=== PATIENT | female | born 1980 | race Caucasian/White ===

== ENCOUNTER 2021-12-21 11:13 | Inpatient (IN) | payer OTHER ==
[~2021-12-21] VITALS: Ht 157.5 cm; Wt 64.4 kg
--- NOTE | 2021-12-21 11:35 | NUR ---
URINE COLLECTED AND SENT TO LAB
[2021-12-21] MEDS ORDERED: ONDANSETRON HCL/PF 4 MG/2 ML VIAL ONE ×2 (11:50→19:19)
--- NOTE | 2021-12-21 11:50 | NUR ---
IV LINE ESTABLISHED. BLOOD COLLECTED AND SENT TO LAB.
--- NOTE | 2021-12-21 11:56 | NUR ---
DUPLICATE ORDER FOR ZOFRAN
[2021-12-21] MEDS ORDERED: PANTOPRAZOLE 80 MG in IV NS 0.9% 500 ML IV ONE (12:00)
[2021-12-21] MEDS ORDERED: ONDANSETRON HCL/PF - ER 4 MG/2 ML VIAL IV ONE ×2 (12:00)
[2021-12-21] MEDS ORDERED: PANTOPRAZOLE 40 MG VIAL IV ONE (12:30)
[2021-12-21] MEDS ORDERED: OCTREOTIDE 500 MCG in IV NS 0.9% 99 ML IV PRN (12:30)
[2021-12-21] MEDS ORDERED: IV NS 0.9% 1,000 ML BAG IV ONE (12:30)
[2021-12-21] MEDS ORDERED: LORAZEPAM INJ 2 MG/ML VIAL ONE (12:30)
[2021-12-21] MEDS ORDERED: LORAZEPAM INJ 2 MG/ML VIAL IV ONE (12:30)
[2021-12-21] MEDS ORDERED: PANTOPRAZOLE 40 MG VIAL ONE (12:30)
[2021-12-21 12:46] LABS: BASOPHILS % (AUTO) 0.5 % (0.0-2.0); HEMATOCRIT 42 % (33-45); HEMOGLOBIN 14.3 g/dL (11.5-14.8); LYMPHOCYTES # (AUTO) 0.4 K/uL (0.8-4.8); MEAN CORPUSCULAR HGB CONC 34 g/dl (31.0-36.0); MEAN CORPUSCULAR VOLUME 99 fL (82-100); MONOCYTES # (AUTO) 0.3 K/uL (0.1-1.30); MONOCYTES % (AUTO) 3.6 % (2.0-12.0); NEUTROPHILS # (AUTO) 7.3 K/uL (1.8-8.9); NEUTROPHILS % (AUTO) 90.9 % (43.0-81.0); RED BLOOD CELL COUNT(AUTO) 4.26 MIL/uL (4.0-5.2); WHITE BLOOD COUNT (AUTO) 8.1 K/uL (4.3-11.0)
[2021-12-21 13:45] LABS: PLATELET COUNT (AUTO) 94 K/uL (150-450)
[2021-12-21 13:49] LABS: CALCIUM, SERUM 9.2 mg/dL (8.5-10.1); CARBON DIOXIDE 23 mmol/L (21-32); CHLORIDE 94 mmol/L (98-107); CREATININE 0.7 mg/dL (0.6-1.3); GLUCOSE 133 mg/dL (74-106); SODIUM SERUM 136 mmol/L (136-145); UREA NITROGEN, BLOOD 11 mg/dL (7-18)
[2021-12-21 13:55] LABS: ALANINE AMINOTRANSFERASE 77 U/L (12-78); ALBUMIN 4.4 g/dL (3.4-5.0); ALKALINE PHOSPHATASE 167 U/L (46-116); ASPARTATE AMINOTRANSFERASE 123 U/L (15-37); BILIRUBIN,DIRECT 0.5 mg/dL (0.0-0.2); BILIRUBIN,TOTAL 1.2 mg/dL (0.2-1.0); LIPASE 297 U/L (73-393); TOTAL PROTEIN, SERUM 8.9 g/dL (6.4-8.2)
--- NOTE | 2021-12-21 14:42 | NUR ---
MOVE SHEET SUBMITTED.
--- NOTE | 2021-12-21 14:43 | NUR ---
COVID ANTIGEN SWAB COLLECTED AND SENT TO LAB
--- NOTE | 2021-12-21 14:54 | NUR ---
URINE SAMPLE COLLECTED AND SENT TO LAB
[2021-12-21] MEDS ORDERED: QUET200T PO (15:01)
[2021-12-21] MEDS ORDERED: QUET25TA PO (15:01)
[2021-12-21 15:33] LABS: BILIRUBIN,URINE NEGATIVE (NEGATIVE); COLOR,URINE YELLOW (YELLOW); LEUKOCYTE ESTERASE ,URINE NEGATIVE (NEGATIVE); NITRITE, URINE NEGATIVE (NEGATIVE); PROTEIN,URINE 100 mg/dl (NEGATIVE); UGLUCOSE NEGATIVE (NEGATIVE); UROBILINOGEN,URINE 0.2 EU/dL (0.2)
--- NOTE | 2021-12-21 15:41 | NUR ---
[facility] CALLED MOLD BUNCH TRIMMER PAGED.
[2021-12-21 15:50] LABS: BACTERIA,URINE Few /HPF (None Seen); SQUAMOUS EPITHELIAL CELL,UR Moderate /HPF (None Seen)
--- NOTE | 2021-12-21 15:55 | NUR ---
PT TAKEN FOR CT SCAN
[2021-12-21] MEDS ORDERED: IOHEXOL-300 100 ML VIAL IV ONE (16:07)
[2021-12-21] MEDS ORDERED: IV NS 0.9% 250 ML IV ONE (16:07)
[2021-12-21] MEDS ORDERED: diphenhydrAMINE HCL 50 MG/ML VIAL ONE (16:28)
[2021-12-21] MEDS ORDERED: Z GUARD REMEDY 4 OZ OINT TP PRN (16:30)
[2021-12-21] MEDS ORDERED: LORAZEPAM INJ 2 MG/ML VIAL IV PRN (16:30)
[2021-12-21] MEDS ORDERED: ONDANSETRON HCL/PF 4 MG/2 ML VIAL IVP PRN (16:30)
[2021-12-21] MEDS ORDERED: diphenhydrAMINE HCL 50 MG/ML VIAL IV ONE (16:30)
[2021-12-21] MEDS ORDERED: ACETAMINOPHEN 325 MG TABLET PO PRN (16:30)
[2021-12-21] MEDS ORDERED: MORPHINE SULFATE INJ 2 MG/ML DISP.SYRIN IV PRN (16:30)
--- NOTE | 2021-12-21 16:30 | NUR ---
PT RETURNED FROM CAT SCAN, PT C/O ITCHING POST CT WITH CONTRAST. MEDICATED ORDERED.
--- NOTE | 2021-12-21 18:58 | NUR ---
FECAL OCCULT OBTAINED AND SENT TO LAB
--- NOTE | 2021-12-21 19:00 | NUR ---
PT AMBULATED TO BATHROOM WITH STEADY GAIT, RECONNECTED TO MONITOR. WILL ENDORSE TO LASHAE KEYES.
--- NOTE | 2021-12-21 20:07 | NUR ---
BOILERMAKER AT PT'S BEDSIDE
[2021-12-21] MEDS ORDERED: POTASSIUM CL. PREMIX PERIPHER. 100 ML ONE (20:13)
[2021-12-21 20:24] LABS: OCCULT BLOOD STOOL NEGATIVE (NEGATIVE)
[2021-12-21] MEDS: POTASSIUM CL. PREMIX PERIPHER. 50 ML IV SCH ×4 (20:30→23:10)
[2021-12-21] MEDS: Folic acid 1 MG in IV D5W 50 ML IV SCH (21:30)
[2021-12-21] MEDS: Thiamine 100 MG in IV D5W 50 ML IV SCH (21:30)
--- NOTE | 2021-12-21 22:06 | NUR ---
ROOM 324-1
--- NOTE | 2021-12-21 22:22 | NUR ---
REPORT GIVEN TO STEPHY MILLER FOR ARTI
[2021-12-21 22:38] VITALS: BP 155/91
--- NOTE | 2021-12-21 22:45 | NUR ---
RN NOTES RECEIVED PATIENT FORM ER WITH DX, GI BLEED, HEMATEMESIS, A/OX3, SR ON TELE MONITOR HR-82, DENIES PAIN, NO N/V, NO SOB, ADMISSION INSTRUCTION WAS GIVEN, CALL LIGHT WITHIN REACH, [id number], WILL CONTINUE TO MONITOR
--- NOTE | 2021-12-21 23:01 | NUR ---
pt transported [place] with emt and rn at bedside with acls protocol. nad noted. pt ambulated from gurney to bed on steady gait.
[2021-12-22] VITALS: BP 123/82
[2021-12-22] MEDS ORDERED: OCTREOTIDE 500 MCG/ML VIAL ONE (00:50)
[2021-12-22] MEDS: IV LR 1000 ML 1,000 ML IV PRN ×3 (00:55→22:52)
[2021-12-22 04:00] VITALS: BP 135/72
--- NOTE | 2021-12-22 06:22 | NUR ---
RN NOTES AWAKE, DENIES PAIN, NO SON, NO N/V, MORNING CARE RENDERED, CALL LIGHT WITHIN REACH, [id number], PT. NEEDS ATTENDED
[2021-12-22 07:00] LABS: BASOPHILS % (AUTO) 0.6 % (0.0-2.0); EOSINOPHILS % (AUTO) 1.1 % (0.0-6.0); HEMATOCRIT 37 % (33-45); HEMOGLOBIN 12.8 g/dL (11.5-14.8); LYMPHOCYTES # (AUTO) 1.3 K/uL (0.8-4.8); LYMPHOCYTES % (AUTO) 21.1 % (20.0-44.0); MEAN CORPUSCULAR HGB CONC 35 g/dl (31.0-36.0); MEAN CORPUSCULAR VOLUME 100 fL (82-100); MONOCYTES # (AUTO) 0.5 K/uL (0.1-1.30); MONOCYTES % (AUTO) 7.6 % (2.0-12.0); NEUTROPHILS # (AUTO) 4.2 K/uL (1.8-8.9); NEUTROPHILS % (AUTO) 69.6 % (43.0-81.0); PLATELET COUNT (AUTO) 59 K/uL (150-450); RED BLOOD CELL COUNT(AUTO) 3.67 MIL/uL (4.0-5.2)
--- NOTE | 2021-12-22 07:30 | NUR ---
BILL COLLECTOR NOTES RECEIVED PATIENT AWAKE IN BED. A/OX3, SR ON TELE MONITOR .DENIES PAIN, NO N/V, NO SOB NO RESPIRATORY DISTRESS NOTED. ABLE TO MAKE NEEDS KNOWN. IV ACCESS ON THE RAC #20 INTACT. IV ACCESS ON THE RIGHT HAND INTACT.NO BLEEDING NOTED AND REPORTED. CALL LIGHT WITHIN REACH, SIDE RAILS UPX2, BED IN THE LOWEST POSITION AND LOCKED.WILL CONTINUE TO MONITOR.
[2021-12-22 07:32] LABS: ALBUMIN 3.6 g/dL (3.4-5.0); BILIRUBIN,TOTAL 2.2 mg/dL (0.2-1.0); CALCIUM, SERUM 8.6 mg/dL (8.5-10.1); CREATININE 0.6 mg/dL (0.6-1.3); MAGNESIUM 1.8 mg/dL (1.8-2.4); PHOSPHORUS 2.4 mg/dL (2.5-4.9); POTASSIUM 3.9 mmol/L (3.5-5.1); TOTAL PROTEIN, SERUM 7.2 g/dL (6.4-8.2)
[2021-12-22 08:00] VITALS: BP 131/92
[2021-12-22] MEDS: OCTREOTIDE 500 MCG in IV NS 0.9% 99 ML IV PRN ×2 (11:43→11:48)
[2021-12-22 16:00] VITALS: BP 126/95
[2021-12-22] MEDS ORDERED: K PHOS NEUTRAL 250 MG TABLET PO ONE (16:00)
--- NOTE | 2021-12-22 19:25 | NUR ---
MS RN CLOSING NOTES PATIENT AWAKE IN BED. A/OX3 .DENIES PAIN, NO N/V, NO HEMATHEMESIS , NO BLEEDING NOTED.NO SOB NO RESPIRATORY DISTRESS NOTED. ABLE TO MAKE NEEDS KNOWN. IV ACCESS ON THE RAC #20 INTACT. IV ACCESS ON THE RIGHT HAND INTACT. SANDOSTATIN AT 10 ML/HR AND LR AT 125ML/HR RUNNING.ALL DUE MEDS GIVEN ORDERED.CALL LIGHT AND TABLE WITHIN REACH, SIDE RAILS UPX2, BED IN THE LOWEST POSITION AND LOCKED.WILL ENDORSE FOR ARTI.
--- NOTE | 2021-12-22 19:30 | NUR ---
RN NOTES RECEIVED PATIENT AWAKE ON HER BED, A/OX3 AMBULATORY DENIES PAIN, NO SOB, CALL LIGHT WITHIN REACH, SIDERAILSUPX2, WILL CONTINUE TO MONITOR
[2021-12-22 20:00] VITALS: BP 131/93
[2021-12-22] MEDS: Folic acid 1 MG in IV D5W 50 ML IV SCH (21:09)
[2021-12-22] MEDS: Thiamine 100 MG in IV D5W 50 ML IV SCH (21:58)
[2021-12-23] MEDS: OCTREOTIDE 500 MCG in IV NS 0.9% 99 ML IV PRN (01:34)
--- NOTE | 2021-12-23 06:30 | NUR ---
RN NOTES NOTICED PATIENT IV ACCESS IS SLIGHTLY SWOLLEN, PATIENT REFUSED TO HAVE ANOTHER IV ACCESS, EXPLAINED THE IMPORTANCE OF GETTING ANEW ACCES BUT PATIENT STILL REFUSING. ALSO EXPLAINED TO THE PATIENT SHE'S GOING TO HAVE AN EGD TODAY PER DR CAPONE'S ORDER, PATIENT WANTS TO SPEAK WITH THE DOCTOR FIRST BEFOSR SIGNING THE CONSENT PATIENT DENIES PAIN, NO SOB, MORNING CARE RENDERED, CALL LIGHT WITHIN REACH, SIDERAILSUPX2, PT. NEEDS ATTENDED
--- NOTE | 2021-12-23 07:30 | NUR ---
MS RN OPENING NOTES PATIENT AWAKE IN BED. A/OX3 .DENIES PAIN, NO N/V, NO HEMATEMESIS , NO BLEEDING NOTED.NO SOB NO RESPIRATORY DISTRESS NOTED. ABLE TO MAKE NEEDS KNOWN. IV ACCESS ON THE RAC #20 INTACT. IV ACCESS ON THE LEFT HAND INTACT. SANDOSTATIN AT 2 ML/HR AND LR AT 125ML/HR RUNNING. PATIENT NPO EXCEPT MEDS.CALL LIGHT AND TABLE WITHIN REACH, SIDE RAILS UPX2, BED IN THE LOWEST POSITION AND LOCKED.WILL CONTINUE TO MONITOR.
[2021-12-23 07:36] LABS: ALANINE AMINOTRANSFERASE 70 U/L (12-78); ALBUMIN 3.3 g/dL (3.4-5.0); ALCOHOL, BLOOD < 3 mg/dL (0-0); ALKALINE PHOSPHATASE 124 U/L (46-116); ASPARTATE AMINOTRANSFERASE 123 U/L (15-37); BILIRUBIN,TOTAL 1.7 mg/dL (0.2-1.0); CALCIUM, SERUM 8.9 mg/dL (8.5-10.1); CARBON DIOXIDE 25 mmol/L (21-32); CHLORIDE 96 mmol/L (98-107); CREATININE 0.6 mg/dL (0.6-1.3); GLUCOSE 97 mg/dL (74-106); MAGNESIUM 1.7 mg/dL (1.8-2.4); PHOSPHORUS 3.4 mg/dL (2.5-4.9); POTASSIUM 3.4 mmol/L (3.5-5.1); SODIUM SERUM 134 mmol/L (136-145); TOTAL PROTEIN, SERUM 7.2 g/dL (6.4-8.2); UREA NITROGEN, BLOOD 7 mg/dL (7-18)
[2021-12-23 07:54] LABS: BASOPHILS % (AUTO) 0.4 % (0.0-2.0); EOSINOPHILS % (AUTO) 5.3 % (0.0-6.0); HEMATOCRIT 37 % (33-45); HEMOGLOBIN 12.9 g/dL (11.5-14.8); LYMPHOCYTES # (AUTO) 1.5 K/uL (0.8-4.8); LYMPHOCYTES % (AUTO) 21.4 % (20.0-44.0); MEAN CORPUSCULAR HGB CONC 35 g/dl (31.0-36.0); MEAN CORPUSCULAR VOLUME 103 fL (82-100); MONOCYTES # (AUTO) 0.4 K/uL (0.1-1.30); NEUTROPHILS # (AUTO) 4.6 K/uL (1.8-8.9); NEUTROPHILS % (AUTO) 66.9 % (43.0-81.0); PLATELET COUNT (AUTO) 57 K/uL (150-450); RED BLOOD CELL COUNT(AUTO) 3.59 MIL/uL (4.0-5.2); WHITE BLOOD COUNT (AUTO) 6.8 K/uL (4.3-11.0)
[2021-12-23 07:58] VITALS: BP 140/80
[2021-12-23] MEDS: IV LR 1000 ML 1,000 ML IV PRN (09:39)
[2021-12-23] MEDS ORDERED: POTASSIUM CHLORIDE 20 MEQ TAB.PRT.SR PO SCH (10:00)
[2021-12-23] MEDS ORDERED: MAGNESIUM OXIDE 400 MG TABLET PO ONE (11:00)
[2021-12-23] MEDS ORDERED: OMEP20TA20 PO (13:33)
--- NOTE | 2021-12-23 15:37 | NUR ---
JAVA TECHNICAL ARCHITECT NOTES DISCHARGE PATIENT IN STABLE CONDITION. NO PAIN NOTED. NO RESPIRATORY DISTRESS NOTED. NO BLEEDING NOTED. NO NAUSEA AND VOMITING NOTED. VITAL SIGNS WITHIN NORMAL RANGES. PATIENT THE RECIEVER OF THE INSTRUCTIONS VERBALIZED UNDERSTANDING. 2 IV ACCESS REMOVED AND COVERED WITH GAUZE. NO BLEEDING NOTED. BELONGINGS ACCOUNTED AND SIGNED FOR. ARM BAND REMOVED. NOTED A DISCOLORATION ON THE RIGHT SHOULDER, PICTURE TAKEN IN THE CHART. PATIENT NOT AWARE WHAT HAPPENED. WALKED WITH THE PATIENT TO THE [place] AT 1530 PM, SHE WILL WAIT FOR SISTER TO COME IN THE [place]. CHARGE NURSE CARLOS MANUEL AND MD ROSIE VILLASEÑOR AWARE OF THE DISCHARGE.
[2021-12-23] MEDS ORDERED: THIAMINE HCL 100 MG TABLET PO SCH (21:00)
[2021-12-23] MEDS ORDERED: FOLIC ACID 1 MG TABLET PO SCH (21:00)
== END 2021-12-23 15:52 | disposition home or self-care (01) | DRG 242 ==
LOC: ER 11:20 → TRANSITION 18:31 → MED 22:10 → TELE 12-22 00:25 → MED 12-22 15:44
PROVIDERS: ADMIT Hospitalist; ATTEND Hospitalist
DX: K22.6 Gastro-esophageal laceration-hemorrhage syndrome (principal); K85.20 Alcohol induced acute pancreatitis without necrosis or infection; E87.2 Acidosis; D62 Acute posthemorrhagic anemia; K70.10 Alcoholic hepatitis without ascites; E87.6 Hypokalemia; Z20.822 Contact with and (suspected) exposure to COVID-19; K52.9 Noninfective gastroenteritis and colitis, unspecified; F10.129 Alcohol abuse with intoxication, unspecified; I10 Essential (primary) hypertension; Z88.6 Allergy status to analgesic agent; Y90.6 Blood alcohol level of 120-199 mg/100 ml; Z79.899 Other long term (current) drug therapy; K21.00 Gastro-esophageal reflux disease with esophagitis, without bleeding; K57.30 Diverticulosis of large intestine without perforation or abscess without bleeding; K76.0 Fatty (change of) liver, not elsewhere classified; N85.4 Malposition of uterus
CPT/HCPCS: 36415; 71045-TC; 80048-TC; 80053-TC; 80076-TC; 81001; 82272-TC; 83605-TC; 83690-TC; 83735-TC; 84100-TC; 84484-TC; 84703-TC; 85025-TC; 85730-TC; 86850-TC; 87081-TC; C9113; C9803; G0378; G0480; J1200; J2060; J2354; J2405; J3411; J3480; J3490; J7030; J7040; J7050; J7060; J7120; Q9967

== ENCOUNTER 2022-02-08 06:08 | Emergency (ER) | payer OTHER ==
[~2022-02-08] VITALS: Ht 157.5 cm; Wt 61.2 kg
[~2022-02-08 06:08] MED LIST: OMEP20TA20 PO; QUET200T PO; QUET25TA PO
--- NOTE | 2022-02-08 06:20 | NUR ---
BIBS C/O WOUNDS TO BOTTOM OF FOOT AND TOES. PT STATES SHE WAS AT HOME AND BECAME DIZZY AND FELL, AND WOKE UP TO THE LOWER EXTREMITY INJURIES. -HEADTRAUMA AND DENIES ANY OTHER COMPLAINTS. APPRAISER LAND AT BEDSIDE FOR WOUND CARE.
[2022-02-08] MEDS ORDERED: oxyCODONE IR immediate release 5 MG PO PRN (06:30)
[2022-02-08] MEDS ORDERED: ONDANSETRON 4 MG TAB.RAPDIS SL ONE (06:30)
[2022-02-08] MEDS ORDERED: oxyCODONE IR immediate release 5 MG ONE (06:34)
[2022-02-08] MEDS ORDERED: ONDANSETRON 4 MG TAB.RAPDIS ONE (06:35)
[2022-02-08] MEDS ORDERED: LIDOCAINE /MPF 1% VIAL 5 ML VIAL ONE (09:05)
[2022-02-08] MEDS ORDERED: LIDOCAINE 1% INJ 50 ML MDV IJ ONE (09:30)
[2022-02-08] MEDS ORDERED: CEFAZOLIN 1 GM in IV D5W 50 ML IV ONE (10:30)
--- NOTE | 2022-02-08 11:00 | NUR ---
LEFT A VOICEMAIL TO DR. QUINONES (PODIATRY) FOR CONSULT. WAITING FOR RESPONSE.
[2022-02-08 11:16] LABS: BASOPHILS % (AUTO) 0.4 % (0.0-2.0); HEMATOCRIT 42 % (33-45); LYMPHOCYTES % (AUTO) 9.7 % (20.0-44.0); MEAN CORPUSCULAR HGB CONC 34 g/dl (31.0-36.0); MEAN CORPUSCULAR VOLUME 97 fL (82-100); MONOCYTES # (AUTO) 0.4 K/uL (0.1-1.30); MONOCYTES % (AUTO) 4.3 % (2.0-12.0); NEUTROPHILS # (AUTO) 8.8 K/uL (1.8-8.9); NEUTROPHILS % (AUTO) 85.6 % (43.0-81.0); PLATELET COUNT (AUTO) 225 K/uL (150-450); RED BLOOD CELL COUNT(AUTO) 4.29 MIL/uL (4.0-5.2); WHITE BLOOD COUNT (AUTO) 10.3 K/uL (4.3-11.0)
[2022-02-08 11:37] LABS: CALCIUM, SERUM 9.1 mg/dL (8.5-10.1); CARBON DIOXIDE 20 mmol/L (21-32); CHLORIDE 95 mmol/L (98-107); CREATININE 0.6 mg/dL (0.6-1.3); GLUCOSE 109 mg/dL (74-106); POTASSIUM 3.8 mmol/L (3.5-5.1); SODIUM SERUM 134 mmol/L (136-145); UREA NITROGEN, BLOOD 10 mg/dL (7-18)
[2022-02-08 11:39] LABS: LIPASE 104 U/L (73-393)
[2022-02-08] MEDS ORDERED: CEPH500C2 PO (11:55)
[2022-02-08 12:07] LABS: BILIRUBIN,URINE SMALL (NEGATIVE); COLOR,URINE YELLOW (YELLOW); LEUKOCYTE ESTERASE ,URINE NEGATIVE (NEGATIVE); NITRITE, URINE NEGATIVE (NEGATIVE); PROTEIN,URINE NEGATIVE (NEGATIVE); UGLUCOSE NEGATIVE (NEGATIVE); UROBILINOGEN,URINE 0.2 EU/dL (0.2)
[2022-02-08] MEDS ORDERED: IV NS 0.9% 1,000 ML IV ONE (13:00)
[2022-02-08 13:18] LABS: BACTERIA,URINE RARE /HPF (None Seen); CALCIUM CARBONATE CRYSTALS,UR None Seen /HPF (None Seen); CALCIUM OXALATE CRYSTALS,UR None Seen /HPF (None Seen); CALCIUM PHOSPHATE CRYSTALS,UR None Seen /HPF (None Seen); CYSTINE CRYSTALS,URINE None Seen /HPF (None Seen); OTHER CRYSTALS,URINE None Seen /HPF (None Seen); RBC,URINE 0-2 /HPF (0-2); SQUAMOUS EPITHELIAL CELL,UR RARE /HPF (None Seen); TRICHOMONAS,URINE None Seen /HPF (None Seen); TRIPLE PHOSPHATE CRYSTAL,UR None Seen /HPF (None Seen); TYROSINE CRYSTAL,URINE None seen /HPF (None Seen); URIC ACID CRYSTALS,URINE None Seen /HPF (None Seen); URINE AMORPHOUS URATE None Seen /HPF (None Seen); WBC,URINE 0-2 /HPF (0-3); YEAST,URINE None Seen /HPF (None Seen)
[2022-02-08 13:19] LABS: COARSE GRANULAR CASTS,URINE None Seen /LPF (None Seen); FATTY CASTS,URINE None Seen /LPF (None Seen); FINE GRANULAR CASTS,URINE None Seen /LPF (None Seen); HYALINE CASTS, URINE None Seen /LPF (None Seen); MUCUS,URINE None Seen /LPF (None Seen); RED BLOOD CELL CASTS,URINE None Seen /LPF (None Seen); URINE AMORPHOUS PHOSPHATES None Seen /HPF (None Seen); WAXY CASTS,URINE None Seen /LPF (None Seen)
--- NOTE | 2022-02-08 14:10 | NUR ---
IV removed. Catheter intact and site benign. Pressure and 4x4 applied to site. No bleeding noted.Patient discharged to home in stable condition. Written and verbal after care instructions given. Patient verbalizes understanding of instruction.
[2022-02-08 14:12] VITALS: BP 125/88
== END 2022-02-08 14:17 | disposition home or self-care (01) ==
LOC: ER 06:10
DX: S92.511A Displaced fracture of proximal phalanx of right lesser toe(s), initial encounter for closed fracture (principal); R74.02 Elevation of levels of lactic acid dehydrogenase [LDH]; I10 Essential (primary) hypertension; Z88.6 Allergy status to analgesic agent; Z60.2 Problems related to living alone; Z79.899 Other long term (current) drug therapy; X58.XXXA Exposure to other specified factors, initial encounter; Y93.89 Activity, other specified; Y92.89 Other specified places as the place of occurrence of the external cause; Y99.8 Other external cause status
CPT/HCPCS: 28515; 36415; 73630; 73660; 80048; 81001; 83605; 83690; 84703; 85025; 85730; 87040 ×2; 96365; 99284; A6403; J0690; J3490; J7030; J7060; Q0162

== ENCOUNTER 2022-02-28 19:20 | Emergency (ER) | payer OTHER ==
[~2022-02-28] VITALS: Ht 157.5 cm; Wt 61.2 kg
[~2022-02-28 19:20] MED LIST changes: +CEPH500C2 PO
[2022-02-28 19:50] VITALS: BP 172/117
[2022-02-28] MEDS ORDERED: TRAM50TA PO (20:41)
[2022-02-28] MEDS ORDERED: TRAMADOL HCL 50 MG TABLET PO ONE (21:00)
[2022-02-28] MEDS ORDERED: TRAMADOL HCL 50 MG TABLET ONE (21:13)
--- NOTE | 2022-02-28 21:48 | NUR ---
Patient discharged to home in stable condition. Written and verbal after care instructions given. Patient verbalizes understanding of instruction.
== END 2022-02-28 21:50 | disposition home or self-care (01) ==
LOC: ER 19:22
DX: S92.501A Displaced unspecified fracture of right lesser toe(s), initial encounter for closed fracture (principal); I10 Essential (primary) hypertension; Z88.6 Allergy status to analgesic agent; Z60.2 Problems related to living alone; Z79.899 Other long term (current) drug therapy; X58.XXXA Exposure to other specified factors, initial encounter; Y93.89 Activity, other specified; Y92.89 Other specified places as the place of occurrence of the external cause; Y99.8 Other external cause status

== ENCOUNTER 2022-03-14 05:37 | Emergency (ER) | payer OTHER ==
[~2022-03-14] VITALS: Ht 167.6 cm; Wt 61.2 kg
[~2022-03-14 05:37] MED LIST changes: +TRAM50TA PO
[2022-03-14] MEDS ORDERED: LET SOLN TOPICAL 8 ML UDC TP ONE (06:56)
[2022-03-14] MEDS: LET SOLN TOPICAL 8 ML UDC TP ONE (06:57)
[2022-03-14 07:33] VITALS: BP 147/89
== END 2022-03-14 07:33 | disposition home or self-care (01) ==
LOC: ER 05:39
DX: S92.501D Displaced unspecified fracture of right lesser toe(s), subsequent encounter for fracture with routine healing (principal); M79.671 Pain in right foot; F10.129 Alcohol abuse with intoxication, unspecified; X58.XXXD Exposure to other specified factors, subsequent encounter; Y90.9 Presence of alcohol in blood, level not specified

== ENCOUNTER 2022-12-05 14:47 | Emergency (ER) | payer OTHER ==
[~2022-12-05] VITALS: Ht 154.9 cm; Wt 62.6 kg
--- NOTE | 2022-12-05 14:53 | NUR ---
PT AMBULATED TO RESTROOM WITH STEADY GAIT TO GIVE URINE SAMPLE
--- NOTE | 2022-12-05 14:56 | NUR ---
DR. CORRIGAN AT BEDSIDE.
--- NOTE | 2022-12-05 14:57 | NUR ---
URINE SAMPLE COLLECTED AND SENT TO LAB.
[2022-12-05] MEDS ORDERED: ONDANSETRON HCL/PF 4 MG/2 ML VIAL IVP ONE (15:00)
[2022-12-05] MEDS ORDERED: MORPHINE SULFATE INJ 2 MG/ML DISP.SYRIN IV ONE ×2 (15:00→17:30)
[2022-12-05] MEDS ORDERED: IV NS 0.9% 1,000 ML BAG IV ONE (15:00)
[2022-12-05] MEDS ORDERED: ONDANSETRON HCL/PF 4 MG/2 ML VIAL ONE (15:10)
[2022-12-05] MEDS ORDERED: MORPHINE SULFATE INJ 4 MG/ML DISP.SYRIN ONE ×2 (15:10→17:33)
--- NOTE | 2022-12-05 15:16 | NUR ---
ESTABLISHED IV ACCESS. 20G RIGHT FOREARM. BLOOD DRAWN AND SENT TO LAB. IV FLUIDS RUNNING ORDERED.
[2022-12-05 15:32] LABS: BASOPHILS # (AUTO) 0.1 K/uL (0.0-0.2); BASOPHILS % (AUTO) 0.7 % (0.0-2.0); EOSINOPHILS % (AUTO) 4.8 % (0.0-6.0); HEMATOCRIT 44 % (33-45); HEMOGLOBIN 14.7 g/dL (11.5-14.8); LYMPHOCYTES # (AUTO) 2.6 K/uL (0.8-4.8); LYMPHOCYTES % (AUTO) 32.5 % (20.0-44.0); MEAN CORPUSCULAR HGB CONC 33 g/dl (31.0-36.0); MEAN CORPUSCULAR VOLUME 105 fL (82-100); MONOCYTES # (AUTO) 0.9 K/uL (0.1-1.30); MONOCYTES % (AUTO) 11.1 % (2.0-12.0); NEUTROPHILS # (AUTO) 4.1 K/uL (1.8-8.9); NEUTROPHILS % (AUTO) 50.9 % (43.0-81.0); PLATELET COUNT (AUTO) 258 K/uL (150-450); RED BLOOD CELL COUNT(AUTO) 4.24 MIL/uL (4.0-5.2); WHITE BLOOD COUNT (AUTO) 8.1 K/uL (4.3-11.0)
[2022-12-05 15:42] LABS: BILIRUBIN,DIRECT 0.1 mg/dL (0.0-0.2); BILIRUBIN,TOTAL 0.3 mg/dL (0.2-1.0); CALCIUM, SERUM 9.1 mg/dL (8.5-10.1); CREATININE 0.6 mg/dL (0.6-1.3); POTASSIUM 4.4 mmol/L (3.5-5.1); TOTAL PROTEIN, SERUM 8.8 g/dL (6.4-8.2)
[2022-12-05 16:02] LABS: BILIRUBIN,URINE NEGATIVE (NEGATIVE); COLOR,URINE YELLOW (YELLOW); LEUKOCYTE ESTERASE ,URINE NEGATIVE (NEGATIVE); NITRITE, URINE NEGATIVE (NEGATIVE); PH,URINE 5.5 (5.0-8.0); PROTEIN,URINE TRACE mg/dl (NEGATIVE); UGLUCOSE NEGATIVE (NEGATIVE); UROBILINOGEN,URINE 0.2 EU/dL (0.2)
[2022-12-05 16:41] LABS: BACTERIA,URINE None seen /HPF (None Seen); RBC,URINE 0-2 /HPF (0-2); SQUAMOUS EPITHELIAL CELL,UR Few /HPF (None Seen); WBC,URINE NONE SEEN /HPF (0-3)
--- NOTE | 2022-12-05 16:43 | NUR ---
PT APPEARS TO BE SLEEPING, RESTING COMFORTABLY. VSS. BREATHING EVEN AND UNLABORED.
[2022-12-05] MEDS ORDERED: IV NS 0.9% 250 ML IV ONE (16:51)
[2022-12-05] MEDS ORDERED: CT SWABBABLE VALVE TRANS SET 1 EA INFUS.SET MC ONE (16:51)
[2022-12-05] MEDS ORDERED: IOHEXOL-300 100 ML VIAL IV ONE (16:51)
[2022-12-05 17:07] LABS: EOSINOPHILS % (MANUAL) 3 % (0-4); LYMPHOCYTES % (MANUAL) 39 % (16-48); MONOCYTES % (MANUAL) 13 % (0-11.0); NEUTROPHILS % (MANUAL) 41 (42-76); REACTIVE LYMPHOCYTES 4 % (0-0)
[2022-12-05] MEDS ORDERED: DICY20TA11 PO (18:04)
[2022-12-05 18:23] VITALS: BP 134/70
--- NOTE | 2022-12-05 18:23 | NUR ---
Patient discharged to home in stable condition. Written and verbal after care instructions given. Patient verbalizes understanding of instruction.IV removed. Catheter intact and site benign. Pressure and 4x4 applied to site. No bleeding noted.
== END 2022-12-05 18:24 | disposition home or self-care (01) ==
LOC: ER 14:49
DX: R10.9 Unspecified abdominal pain (principal); A05.9 Bacterial foodborne intoxication, unspecified; I10 Essential (primary) hypertension; Z88.8 Allergy status to other drugs, medicaments and biological substances; Z60.2 Problems related to living alone; Z79.899 Other long term (current) drug therapy
CPT/HCPCS: 99285; 74177; 96374; 96361; 96375; 96376; 85025; 80048; 83690; 80076; 84703; 81001; 36415; 85007; J2270 ×2; J2405; J7030; J7050; Q9967

== ENCOUNTER 2023-03-12 11:22 | Emergency (ER) | payer OTHER ==
[~2023-03-12] VITALS: Ht 157.5 cm; Wt 65.8 kg
[~2023-03-12 11:22] MED LIST changes: +DICY20TA11 PO
--- NOTE | 2023-03-12 11:30 | NUR ---
[id number] C/O SUBSTERNAL CP, NON RADIATING WITH NAUSEA AND VOMITING SINCE YESTERDAY MORNING.
--- NOTE | 2023-03-12 11:45 | NUR ---
BLOOD SAMPLES OBTAINED
[2023-03-12] MEDS ORDERED: ONDANSETRON HCL/PF 4 MG/2 ML VIAL ONE (11:46)
[2023-03-12] MEDS ORDERED: MORPHINE SULFATE INJ 2 MG/ML DISP.SYRIN ONE (11:46)
[2023-03-12 11:49] LABS: BASOPHILS % (AUTO) 0.8 % (0.0-2.0); EOSINOPHILS % (AUTO) 0.2 % (0.0-6.0); HEMATOCRIT 41 % (33-45); HEMOGLOBIN 14.2 g/dL (11.5-14.8); LYMPHOCYTES # (AUTO) 0.8 K/uL (0.8-4.8); LYMPHOCYTES % (AUTO) 19.9 % (20.0-44.0); MEAN CORPUSCULAR HGB CONC 35 g/dl (31.0-36.0); MEAN CORPUSCULAR VOLUME 96 fL (82-100); MONOCYTES # (AUTO) 0.2 K/uL (0.1-1.30); NEUTROPHILS % (AUTO) 74.1 % (43.0-81.0); PLATELET COUNT (AUTO) 145 K/uL (150-450); RED BLOOD CELL COUNT(AUTO) 4.28 MIL/uL (4.0-5.2); WHITE BLOOD COUNT (AUTO) 4.1 K/uL (4.3-11.0)
[2023-03-12] MEDS ORDERED: IV NS 0.9% 1,000 ML BAG IV ONE (12:00)
[2023-03-12] MEDS ORDERED: MORPHINE SULFATE INJ 2 MG/ML DISP.SYRIN IV ONE (12:00)
[2023-03-12] MEDS ORDERED: ONDANSETRON HCL/PF 4 MG/2 ML VIAL IVP ONE (12:00)
[2023-03-12 12:27] LABS: CALCIUM, SERUM 8.8 mg/dL (8.5-10.1); CARBON DIOXIDE 23 mmol/L (21-32); CHLORIDE 100 mmol/L (98-107); CREATININE 0.7 mg/dL (0.6-1.3); GLUCOSE 124 mg/dL (74-106); POTASSIUM 3.7 mmol/L (3.5-5.1); SODIUM SERUM 138 mmol/L (136-145); UREA NITROGEN, BLOOD 9 mg/dL (7-18)
[2023-03-12 12:36] LABS: ALANINE AMINOTRANSFERASE 50 U/L (12-78); ALBUMIN 4.1 g/dL (3.4-5.0); ASPARTATE AMINOTRANSFERASE 51 U/L (15-37); BILIRUBIN,DIRECT 0.2 mg/dL (0.0-0.2); BILIRUBIN,TOTAL 0.8 mg/dL (0.2-1.0); LIPASE 144 U/L (73-393); TOTAL PROTEIN, SERUM 8.3 g/dL (6.4-8.2)
[2023-03-12 12:47] LABS: ALKALINE PHOSPHATASE 133 U/L (46-116)
[2023-03-12] MEDS ORDERED: PANT40TA2 PO (12:51)
[2023-03-12] MEDS ORDERED: ONDA4TAB5 PO (12:51)
--- NOTE | 2023-03-12 13:10 | NUR ---
WAITING FOR BF TO PICK HER UP
[2023-03-12 13:38] VITALS: BP 145/103
--- NOTE | 2023-03-12 13:38 | NUR ---
Patient discharged to home in stable condition. Written and verbal after care instructions given. Patient verbalizes understanding of instruction.
== END 2023-03-12 13:38 | disposition home or self-care (01) ==
LOC: ER 11:24
DX: R10.9 Unspecified abdominal pain (principal); I10 Essential (primary) hypertension; Z60.2 Problems related to living alone; Z79.899 Other long term (current) drug therapy; Z88.1 Allergy status to other antibiotic agents
CPT/HCPCS: 99285; 96374; 71045; 96361; 96375; 93005; 85025; 80048; 83690; 80076; 84484; J2405; J7030; J2270; 36415